=== PATIENT | male | born 1980 | race Caucasian/White ===

== ENCOUNTER 2017-01-22 23:16 | Emergency (ER) | payer BC, OTHER ==
--- NOTE | 2017-01-22 23:20 | PDOC ---
History of Present Illness - General Chief Complaint: Pain, Acute Stated Complaint: TIGHTNESS IN CHEST X 4 DAYS POST OP Time Seen by Provider: 01/22/17 23:19 - History of Present Illness Initial Comments: 01/22/17 23:53 This 36-year-old man presents with a history of intermittent chest tightness for the last 4 days. Patient had left shoulder arthroscopy 4 days ago (01/19/17 ; [facility]) to investigate pain after a labral tear. The patient had a brachial plexus block for anesthesia prior to the surgery. He was told that he might have temporary discomfort in the chest area but patient is concerned because discomfort has continued. He denies cough/fever. Chest tightness is random throughout the day and lasts for several minutes; episodes resolve spontaneously. No clear association between chest tightness and strenuous activity. He denies lower extremity pain or edema. Patient has history of inverted T waves on EKG. His alternative energy technician (Dr. Spear in [place]) performed exercise stress test one week ago preoperatively. Patient states that he was cleared for surgery. He is also had a Holter monitor preoperatively which was also normal. Family history of atrial fibrillation . 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 Past History - Past Medical History Allergies/Adverse Reactions: Allergies Allergy/AdvReac Type Severity Reaction Status Date / Time No Known Allergies Allergy Verified 01/22/17 23:17 Home Medications: Ambulatory Orders Ibuprofen 800 mg PO PRN 01/22/17 Review of Systems - Review of Systems Able to Perform ROS?: Yes Comments:: 12 point review of systems is negative except for what is noted in the history of present illness shortness extent extensive *Physical Exam - Vital Signs Last Vital Signs Temp Pulse Resp BP Pulse Ox 98.7 F 60 16 147/91 100 01/22/17 23:19 01/23/17 01:03 01/22/17 23:19 01/23/17 01:03 01/22/17 23:19 - Physical Exam Comments: GENERAL: Adult male, alert and oriented 3, in no acute distress HEAD: Normal with no signs of trauma. EYES: PERRLA, EOMI, sclera anicteric, conjunctiva clear. ENT: Ears normal, nares patent, oropharynx clear without exudates. Moist mucous membranes. NECK: Normal range of motion, supple without lymphadenopathy, JVD, or masses. Mild tenderness/mild edema left side of neck, anteriorly (brachial plexus block site) LUNGS: Breath sounds equal, clear to auscultation bilaterally. No wheezes, and no crackles. HEART:Regular rate and rhythm, normal S1 and S2 without murmur, rub or gallop. ABDOMEN:.normal bowel sounds No guarding,tenderness or rebound.No masses No distention. EXTREMITIES: Left shoulder in sling; mild tenderness/mild edema anterior- superior aspect of the shoulder without erythema/fluctuance Remainder of the extremity exam is normal without evidence of edema or tenderness of the lower extremities NEUROLOGICAL: Cranial nerves II through XII grossly intact. Normal speech. No focal neurological deficits. MUSCULOSKELETAL: Back non-tender to palpation, no CVA tenderness SKIN: Warm, Dry, normal turgor, no rashes or lesions noted. 12-lead EKG: Normal sinus rhythm at 61 bpm; there are inverted T waves in II, III and aVF; no other abnormalities and axis/intervals are normal ED Treatment Course - LABORATORY CBC & Chemistry Diagram: 01/22/17 23:21 01/22/17 00:19 - ADDITIONAL ORDERS Additional order review: Laboratory Results 01/22/17 01/22/17 00:19 00:19 D-Dimer < 200 Sodium 137 Potassium 3.8 Chloride 103 Carbon Dioxide 29 H Anion Gap 5 L BUN 14 Creatinine 0.9 Creat Clearance w eGFR > 60 Random Glucose 98 Calcium 9.6 Total Bilirubin 0.6 AST 20 ALT 28 Alkaline Phosphatase 52 Creatine Kinase 70 Troponin I < 0.03 L Total Protein 7.1 Albumin 4.4 01/22/17 23:21 RBC 5.15 MCV 84.7 MCHC 33.5 RDW 12.5 MPV 9.3 Neutrophils % 65.9 Lymphocytes % 28.2 Monocytes % 5.0 Eosinophils % 0.4 Basophils % 0.5 Progress Note - Progress Note Progress Note: Laboratory evaluation including CBC, comprehensive profile are essentially normal and troponin/d-dimer are not elevated. Patient will be discharged with instructions to follow-up with his alternative energy technician and his orthopedic surgeon next week with appointments that have already been scheduled. If he has recurrent chest pressure or develops shortness of breath/ cough, he should return to the emergency room *DC/Admit/Observation/Transfer Diagnosis at time of Disposition: Atypical chest pain - Discharge Dispostion Disposition: HOME Condition at time of disposition: Stable - Referrals - Patient Instructions Printed Discharge Instructions: DI for Atypical Chest Pain Additional Instructions: Continue anti-inflammatory medications as needed Follow-up with your alternative energy technician and orthopedic surgeon as scheduled Return to ER if you have severe pain/shortness of breath/palpitations - Post Discharge Activity
[2017-01-22 23:33] VITALS: TEMP 98.7; BMI 33.4
[2017-01-22 23:41] LABS: BASOPHIL 0.5 % (0-2.0); EOSINOPHIL 0.4 % (0-4.5); MCH 28.4 pg (25.7-33.7); MCHC 33.5 g/dl (32.0-35.9); MEAN CELL VOLUME 84.7 fl (80-96); MEAN PLT VOLUME 9.3 fl (7.5-11.1); NEUTROPHILS 65.9 % (42.8-82.8); PLATELET COUNT 244 K/MM3 (134-434); RDW 12.5 % (11.9-15.9); WHITE BLOOD COUNT 10.6 K/mm3 (4.0-10.8)
[2017-01-22 23:47] LABS: ALBUMIN 4.4 g/dl (3.5-5.0); ALK PHOS 52 U/L (32-92); ANION GAP 5 (8-16); BILIRUBIN,TOTAL 0.6 mg/dl (0.2-1.0); CALCIUM 9.6 mg/dl (8.4-10.2); CO2 29 mmol/L (22-28); CPK 70 IU/L (39-308); CREATININE 0.9 mg/dl (0.6-1.3); GLUCOSE,RANDOM 98 mg/dl (74-106); SGOT/AST 20 U/L (10-42); SGPT/ALT 28 U/L (10-40); TOT PROT 7.1 g/dl (6.4-8.3)
[2017-01-22 23:55] LABS: TROPONIN I (DFP) < 0.03 ng/ml (0.03-0.50)
[2017-01-23 01:04] VITALS: BP 147/91; PULSE 60
--- NOTE | 2017-01-25 12:42 | EKG ---
Test Reason : Blood Pressure : / mmHG Vent. Rate : 061 BPM Atrial Rate : 061 BPM P-R Int : 124 ms QRS Dur : 080 ms QT Int : 404 ms P-R-T Axes : 043 055 -18 degrees QTc Int : 406 ms NORMAL SINUS RHYTHM NONSPECIFIC T WAVE ABNORMALITY in inferior leads NO PREVIOUS ECGS AVAILABLE Confirmed by TANNER EVANS MD ([id number]) on 01/25/2017 12:42:39 PM Referred By: MD ANDERSON Confirmed By:TANNER EVANS MD
== END 2017-01-23 01:40 | disposition home or self-care (01) ==
LOC: FER 23:16
DX: R07.89 Other chest pain (principal)
CPT/HCPCS: 36415; 80053; 82550; 84484; 85025; 85379; 93005; 99282-25

== ENCOUNTER 2024-02-18 04:12 | Day surgery (SDC) | payer BC, OTHER ==
[2024-02-11 16:09] VITALS: BMI 36.5
[2024-02-18] MEDS ORDERED: LIDOCAINE HCL 1%, 10 MG/ML (20ML VIAL) ONE (07:27)
[2024-02-18] MEDS ORDERED: BUPIVACAINE HCL/PF 0.5% (5MG/ML) 10 ML VIAL ONE (07:28)
[2024-02-18] MEDS ORDERED: LIDOCAINE HCL 2% (20ML MULTI-DOSE VIAL) ONE (08:03)
[2024-02-18] MEDS ORDERED: PROPOFOL 20 ML ONE ×2 (08:20→08:31)
[2024-02-18] MEDS: ceFAZolin SODIUM 1 GM VIAL IVPB ONE (08:30)
[2024-02-18] MEDS ORDERED: ONDANSETRON 4 MG/2 ML VIAL IVPUSH PRN (09:22)
[2024-02-18] MEDS ORDERED: ACETAMINOPHEN 500 MG TABLET (FP) PO PRN (09:22)
[2024-02-18] MEDS ORDERED: LACTATED RINGERS SOLUTION 1,000 ML IV SCH (09:30)
[2024-02-18] MEDS: oxyCODONE HCL 5 MG TABLET PO PRN (10:06)
[2024-02-18] MEDS ORDERED: oxyCODONE HCL 5 MG TABLET ONE (10:06)
[2024-02-18 12:38] VITALS: BP 116/73; PULSE 60; RESP 16; TEMP 97.5
== END 2024-02-18 12:39 | disposition home or self-care (01) ==
LOC: JASU-SURG 04:12
PROVIDERS: ATTEND Urology
PROC: 0VBQ0ZZ Excision of Bilateral Vas Deferens, Open Approach (ICD-10-PCS; principal; 2024-02-18 08:15)
DX: Z30.2 Encounter for sterilization (principal)
CPT/HCPCS: 88302-TC; 94760